=== PATIENT | male | born 1955 | race Caucasian/White ===

== ENCOUNTER → 2016-06-07 | Outpatient (CLI) | payer BC ==
[~2016-06-07] MED LIST: CYMBALTA; DEPAKOTE; SEROQUEL; WELLBUTRIN PO
== END ==
LOC: BHSO 14:53
DX: F43.10 Post-traumatic stress disorder, unspecified (principal)

== ENCOUNTER → 2016-06-09 | Outpatient (CLI) | payer BC | LOC: BHSO 10:38 | DX: F31.74 Bipolar disorder, in full remission, most recent episode manic (principal) ==

== ENCOUNTER → 2016-10-20 | Outpatient (CLI) | payer BC | LOC: BHSO 15:15 | DX: F31.73 Bipolar disorder, in partial remission, most recent episode manic (principal) ==

== ENCOUNTER → 2017-01-19 | Outpatient (CLI) | payer BC | LOC: BHSO 09:56 | DX: F31.73 Bipolar disorder, in partial remission, most recent episode manic (principal) ==

== ENCOUNTER → 2017-03-15 | Outpatient (CLI) | payer BC | LOC: BHSO 09:53 | DX: F31.81 Bipolar II disorder (principal) ==

== ENCOUNTER → 2017-06-14 | Outpatient (CLI) | payer BC | LOC: BHSO 09:57 | DX: F31.31 Bipolar disorder, current episode depressed, mild (principal) | CPT/HCPCS: G0463 ==

== ENCOUNTER → 2017-08-10 | Outpatient (CLI) | payer BC | LOC: BHSO 10:52 | DX: F31.76 Bipolar disorder, in full remission, most recent episode depressed (principal) | CPT/HCPCS: G0463 ==

== ENCOUNTER → 2017-09-21 | Outpatient (CLI) | payer BC | LOC: BHSO 11:25 | DX: F31.31 Bipolar disorder, current episode depressed, mild (principal) | CPT/HCPCS: G0463 ==

== ENCOUNTER → 2017-11-07 | Outpatient (CLI) | payer BC | LOC: COL.RAD 09:17 | DX: C91.40 Hairy cell leukemia not having achieved remission (principal); R16.1 Splenomegaly, not elsewhere classified; Z98.890 Other specified postprocedural states ==

== ENCOUNTER → 2017-11-15 | Outpatient (CLI) | payer BC | LOC: BHSO 11:16 | DX: F31.75 Bipolar disorder, in partial remission, most recent episode depressed (principal) ==

== ENCOUNTER → 2018-01-22 | Outpatient (CLI) | payer BC | LOC: BHSO 11:19 | DX: F31.75 Bipolar disorder, in partial remission, most recent episode depressed (principal) | CPT/HCPCS: G0463 ==

== ENCOUNTER → 2018-02-28 | Outpatient (CLI) | payer BC | LOC: BHSO 12:55 | DX: F31.75 Bipolar disorder, in partial remission, most recent episode depressed (principal) | CPT/HCPCS: G0463 ==

== ENCOUNTER → 2018-05-07 | Outpatient (CLI) | payer BC | LOC: BHSO 13:53 | DX: F31.75 Bipolar disorder, in partial remission, most recent episode depressed (principal) | CPT/HCPCS: G0463 ==

== ENCOUNTER → 2018-07-05 | Outpatient (CLI) | payer BC | LOC: BHSO 14:55 | DX: F31.75 Bipolar disorder, in partial remission, most recent episode depressed (principal) | CPT/HCPCS: G0463 ==

== ENCOUNTER → 2018-09-05 | Outpatient (CLI) | payer BC | LOC: BHSO 14:20 | DX: F31.75 Bipolar disorder, in partial remission, most recent episode depressed (principal) | CPT/HCPCS: G0463 ==

== ENCOUNTER → 2018-10-08 | Outpatient (CLI) | payer BC | LOC: BHSO 14:09 | DX: F31.76 Bipolar disorder, in full remission, most recent episode depressed (principal) | CPT/HCPCS: G0463 ==

== ENCOUNTER 2019-01-04 06:15 | Day surgery (SDC) | payer BC ==
[~2019-01-04] VITALS: Ht 170.2 cm; Wt 72.8 kg
[2019-01-04 07:00] VITALS: BP 97/62; PULSE 66; TEMP 97.5
[2019-01-04] MEDS ORDERED: GEODON60 MG PO (07:16)
[2019-01-04] MEDS ORDERED: PRILOSEC 20MG20 MG PO (07:16)
[2019-01-04] MEDS ORDERED: DESYREL DIVIDO150 M1 PO (07:17)
[2019-01-04] MEDS ORDERED: CARDURA4 MG PO (07:18)
[2019-01-04] MEDS ORDERED: ZOCOR 40MG40 MG PO (07:19)
[2019-01-04] MEDS ORDERED: PRISTIQ 50 MG T50 MG PO (07:19)
[2019-01-04] MEDS ORDERED: FLOMAX 0.40.4 MG/CAP PO (07:20)
[2019-01-04] MEDS ORDERED: ATIVAN 1MG T1 MG/TAB PO (07:20)
[2019-01-04] MEDS ORDERED: LOFIBRA160 MG PO (07:21)
[2019-01-04] MEDS ORDERED: INDERAL 20MG20 MG PO (07:21)
[2019-01-04] MEDS ORDERED: LAMICTAL150 MG PO (07:22)
[2019-01-04] MEDS ORDERED: COLACE 100100 MG/CAP PO (07:22)
[2019-01-04] MEDS ORDERED: MELATONIN5 M1 PO (07:23)
[2019-01-04] MEDS ORDERED: IRON 27 MG PO (07:25)
[2019-01-04] MEDS ORDERED: VITAMIN D31000 IU PO (07:25)
[2019-01-04] MEDS ORDERED: VITAMINC1000TA PO (07:26)
[2019-01-04] MEDS ORDERED: FLAXSEED OIL1000 MG PO (07:27)
[2019-01-04] MEDS ORDERED: ZYRTEC 10MG10 MG PO (07:29)
[2019-01-04 08:00] VITALS: BP 86/54; PULSE 60; TEMP 97.4
--- NOTE | 2019-01-04 08:00 | NUR ---
Pt to GI bay 5 via cart from [employer]. Pt ambulates to recliner with stand by assistance. Warm blanket provided. IVF infusing wide open. Muffin and juice provided per pt request. Will continue to monitor. Call light within reach.
[2019-01-04 08:15] VITALS: BP 86/56; PULSE 62
--- NOTE | 2019-01-04 08:15 | NUR ---
Pt continues to rest. Denies pain or nausea. Tolerating food and fluids without difficulties. Call light within reach.
[2019-01-04 08:30] VITALS: BP 82/50; PULSE 51
--- NOTE | 2019-01-04 08:30 | NUR ---
Discharge instructions reviewed. Pt voices understanding. Will finish bag of IV fluids. Pt asymptomatic with low blood pressure. Will continue to monitor.
[2019-01-04 08:45] VITALS: BP 92/50; PULSE 53
--- NOTE | 2019-01-04 08:45 | NUR ---
IV site discontinued with all parts intact. Pt up to dress. Call light within reach.
--- NOTE | 2019-01-04 09:04 | NUR ---
Pt escorted to private car via wheel chair. Pt accompanied home by his .
== END 2019-01-04 09:05 | disposition home or self-care (01) ==
LOC: SDCO 06:15
DX: D12.5 Benign neoplasm of sigmoid colon (principal); K92.1 Melena; K64.1 Second degree hemorrhoids; K22.2 Esophageal obstruction; Z90.49 Acquired absence of other specified parts of digestive tract; Z88.8 Allergy status to other drugs, medicaments and biological substances
CPT/HCPCS: J2250; J3010; J7030

== ENCOUNTER → 2019-01-09 | Outpatient (CLI) | payer BC ==
[~2019-01-09] MED LIST changes: +ATIVAN 1MG T1 MG/TAB PO; +CARDURA4 MG PO; +COLACE 100100 MG/CAP PO; +DESYREL DIVIDO150 M1 PO; +FLAXSEED OIL1000 MG PO; +FLOMAX 0.40.4 MG/CAP PO; +GEODON60 MG PO; +INDERAL 20MG20 MG PO; +IRON 27 MG PO; +LAMICTAL150 MG PO; +LOFIBRA160 MG PO; +MELATONIN5 M1 PO; +PRILOSEC 20MG20 MG PO; +PRISTIQ 50 MG T50 MG PO; +VITAMIN D31000 IU PO; +VITAMINC1000TA PO; +ZOCOR 40MG40 MG PO; +ZYRTEC 10MG10 MG PO
== END ==
LOC: BHSO 14:35
DX: F31.76 Bipolar disorder, in full remission, most recent episode depressed (principal)
CPT/HCPCS: G0463

== ENCOUNTER → 2019-03-29 | Outpatient (CLI) | payer BC | LOC: BHSO 13:30 | DX: F31.75 Bipolar disorder, in partial remission, most recent episode depressed (principal) | CPT/HCPCS: G0463 ==

== ENCOUNTER → 2019-05-09 | Outpatient (CLI) | payer BC | LOC: BHSO 14:12 | DX: F31.75 Bipolar disorder, in partial remission, most recent episode depressed (principal) | CPT/HCPCS: G0463 ==

== ENCOUNTER → 2019-10-04 | Outpatient (CLI) | payer BC | LOC: BHSO 13:18 | DX: F31.76 Bipolar disorder, in full remission, most recent episode depressed (principal) | CPT/HCPCS: G0463 ==

== ENCOUNTER → 2020-01-06 | Outpatient (CLI) | payer BC | LOC: BHSO 13:35 | DX: F31.76 Bipolar disorder, in full remission, most recent episode depressed (principal) | CPT/HCPCS: G0463 ==

== ENCOUNTER → 2020-10-23 | Outpatient (CLI) | payer BC | LOC: COL.RAD 12:01 | DX: M48.02 Spinal stenosis, cervical region (principal); M50.321 Other cervical disc degeneration at C4-C5 level | CPT/HCPCS: A9585 ==

== ENCOUNTER 2021-01-10 13:24 | Emergency (ER) | payer BC ==
[~2021-01-10] VITALS: Ht 170.2 cm; Wt 65.9 kg
[2021-01-10 13:30] VITALS: TEMP 99.4
[2021-01-10 14:21] LABS: HEMATOCRIT 39.9 % (42.0-52.0); HEMOGLOBIN 14.1 g/dl (13.5-18.0); MEAN CELL VOLUME 88 fl (80.0-100.0); MEAN CORPUSCULAR HEMOGLOBIN 31 pg (27.0-31.0); MEAN CORPUSCULAR HGB CONC 35 g/dl (33.0-37.0); PLATELET COUNT 163 K/mm3 (130-400); RED BLOOD COUNT 4.53 M/mm3 (4.20-5.60); REDCELL DISTRIBUTION WIDTH-CV 11.1 % (11.5-14.5)
[2021-01-10 14:25] LABS: ALANINE AMINOTRANSFERASE 154 U/L (4-49); ALBUMIN 4.6 gm/dL (3.5-5.0); ALKALINE PHOSPHATASE 317 U/L (50-136); ANION GAP 10 mmol/L (7-16); AST,SGOT 95 U/L (15-37); BILIRUBIN,TOTAL 0.6 mg/dL (0.0-1.0); BLOOD UREA NITROGEN 10 mg/dL (9-20); CALCIUM 9.9 mg/dL (8.4-10.2); CARBON DIOXIDE 25 mmol/L (22-30); CHLORIDE 99 mmol/L (98-107); CREATININE, serum 0.66 (0.66-1.25); GLUCOSE 99 mg/dL (74-106); POTASSIUM 4.9 mmol/L (3.4-5.0); SODIUM 135 mmol/L (137-145); TOTAL PROTEIN 7.5 gm/dL (6.4-8.2)
[2021-01-10 14:39] LABS: TROPONIN-I < 0.012 ng/mL (0.000-0.035)
[2021-01-10 15:01] LABS: TSH w REFLEX 0.675 uIU/mL (0.465-4.680)
[2021-01-10 15:02] LABS: BAND 3 % (0-10); EOSINOPHIL 4 % (0-4); LYMPHOCYTE 20 % (20.0-51.0); METAMYELOCYTE 2 % (0-0); MYELOCYTE 1 % (0-0); NEUTROPHILS 64 % (42.0-75.2); PLATELET ESTIMATE NORMAL (NORMAL)
[2021-01-10 16:01] VITALS: BP 130/83; PULSE 68
[2021-01-10 16:03] LABS: MONOSCREEN NEGATIVE
== END 2021-01-10 16:01 | disposition home or self-care (01) ==
LOC: COL.ER 13:24
PROVIDERS: Emergency Medicine
DX: I10 Essential (primary) hypertension (principal); R74.01 Elevation of levels of liver transaminase levels; F32.9 Major depressive disorder, single episode, unspecified; F41.9 Anxiety disorder, unspecified; Z79.899 Other long term (current) drug therapy

== ENCOUNTER 2021-09-16 05:20 | Day surgery (SDC) | payer BC ==
[2021-09-16] VITALS (11 sets, daily range): BP systolic 106–132; BP diastolic 42–81; PULSE 47–86; TEMP 97.3–100.1
[~2021-09-16] VITALS: Ht 170.2 cm; Wt 71.4 kg
[2021-09-16] MEDS ORDERED: GEODON60 MG PO (06:26)
[2021-09-16] MEDS ORDERED: ATARAX50 MG PO (06:27)
[2021-09-16] MEDS ORDERED: MOBIC15 MG PO (06:28)
[2021-09-16] MEDS ORDERED: AMBIEN 5MG TABLE5 MG PO (06:28)
--- NOTE | 2021-09-16 09:05 | NUR ---
Patient to room 323 from the PACU, A&Ox3, drowsy. VSS, post op VS monitored. IV CDI, fluids by gravity. CDI by gravity, urine clear. Nurse oriented the patient and family to location, room and call light. Denies pain and discomfort. Cisneros intact. Call light within reach
--- NOTE | 2021-09-16 17:41 | NUR ---
Patient laying in bed, at the bedside. Patient A&Ox4. VSS. IV CDI. CBI by gravity. Cisneros intact. Patient tolerating well. Call light within reach
--- NOTE | 2021-09-16 21:34 | NUR ---
ASSESSMENT COMPLETE. PT. SITTING UP IN BED. A&O. COMPLANING OF SHARP PAIN 7/10 TO PENIS. TYLENOL WAS GIVEN. (SEE EMAR). PT. ALSO COMPLAINIG OF COCCYX GOING NUMB. PILLOWS PROPPED UP UNDER RIGHT SIDE. PT. EXPRESSED RELIEF. INT TO RIGHT HAND. CBI DEPENDENT TO GRAVITY DRAINING PINK URINE. STAT LOCK IN PLACE. CALL LIGHT IN REACH. NO FURTHER NEEDS AT THIS TIME.
[2021-09-17 04:01] VITALS: BP 123/70; PULSE 78; TEMP 99.2
--- NOTE | 2021-09-17 06:45 | NUR ---
Pt doing well at shift change. He was on the phone ordering breakfast
[2021-09-17 07:42] VITALS: BP 123/68; PULSE 83; TEMP 98.7
--- NOTE | 2021-09-17 09:12 | NUR ---
Operator Vacuum met with patient to discuss discharge planning. Patient lives in [place] with his , Roxane (ph#[phone]) and sees Dr. Dozier for primary care. Patient obtains medications from [facility] with no difficulties and does not use any DME. Patient is independent with ADLS and plans to return home at time of discharge. Patient reports his is his DPOA-HC. Discharge Plan: Home
--- NOTE | 2021-09-17 09:17 | NUR ---
Initial visit; Patient thanked Sand Molder for looking in on him and offering God's blessings. Patient states he is doing well and was receptive to Sand Molder keeping him in her prayers.
--- NOTE | 2021-09-17 09:50 | NUR ---
Cisneros catheter primed and pulled. Educated pt on 6 bottle routine and encouraged him to drink plenty of fluids. Pt verbalized understanding.
[2021-09-17 11:03] VITALS: BP 129/72; PULSE 72; TEMP 99
[2021-09-17 15:26] VITALS: BP 138/82; PULSE 73; TEMP 98.4
--- NOTE | 2021-09-17 16:35 | NUR ---
Reviewed discharge instructions with pt and his to include follow up appointment. INT removed from right hand. Educated for him to notify nursing when he is ready to leave and we would escort him out
== END 2021-09-17 16:53 | disposition home or self-care (01) ==
LOC: SDCO 05:20 → SURG 09:05 → SDCO 09-17 16:53
DX: N40.1 Benign prostatic hyperplasia with lower urinary tract symptoms (principal); N13.8 Other obstructive and reflux uropathy; R39.12 Poor urinary stream; R97.20 Elevated prostate specific antigen [PSA]; K21.9 Gastro-esophageal reflux disease without esophagitis
CPT/HCPCS: OP; J0690; J2250; J2704; J7120

== ENCOUNTER 2021-11-19 15:00 | Outpatient (RCR) | payer BC ==
[~2021-11-19 15:00] MED LIST changes: +AMBIEN 5MG TABLE5 MG PO; +ATARAX50 MG PO; +MOBIC15 MG PO
== END 2021-11-21 | disposition home or self-care (01) ==
LOC: MKS.ESL.PT
DX: M54.6 Pain in thoracic spine (principal)

== ENCOUNTER 2021-12-17 14:30 | Outpatient (RCR) | payer BC | END 2021-12-22 | disposition home or self-care (01) | LOC: MKS.ESL.PT | DX: M54.6 Pain in thoracic spine (principal) ==